=== PATIENT | female | born 1980 | race Caucasian/White ===

== ENCOUNTER 2023-04-07 05:56 | Day surgery (SDC) | payer BC, OTHER ==
[2023-04-07] MEDS ORDERED: Midazolam 1 MG/ML 2 ML SDV IV ONE (05:57)
[2023-04-07] MEDS ORDERED: fentaNYL 100 MCG/2 ML SDV IV ONE (05:57)
[2023-04-07] MEDS ORDERED: Midazolam 1 MG/ML 2 ML SDV ONE (06:11)
[2023-04-07] MEDS ORDERED: fentaNYL 100 MCG/2 ML SDV ONE (06:11)
[2023-04-07] MEDS: Dextrose 5%-0.45% NaCl 1,000 ML IV SCH (06:33)
[2023-04-07] MEDS: fentaNYL 100 MCG/2 ML SDV IV ONE ×3 (06:56→07:09)
[2023-04-07] MEDS: Midazolam 1 MG/ML 2 ML SDV IV ONE ×6 (06:57→07:08)
== END 2023-04-07 09:00 | disposition home or self-care (01) ==
LOC: DL.ENDO 05:56
PROVIDERS: ATTEND Internal Medicine Gastroenterology
DX: D12.3 Benign neoplasm of transverse colon (principal); F41.1 Generalized anxiety disorder; G47.00 Insomnia, unspecified; Z80.0 Family history of malignant neoplasm of digestive organs; Z98.890 Other specified postprocedural states
CPT/HCPCS: 81025; J2250; J3010; J7042